=== PATIENT | female | born 1950 | race African-American/Black ===

== ENCOUNTER 2018-08-16 18:27 | Emergency (ER) | payer MEDICARE ==
[~2018-08-16] VITALS: Ht 175.3 cm; Wt 70.0 kg
[2018-08-16] MEDS ORDERED: SODIUM CHLORIDE 0.9% 1,000 ML IV ONE (18:58)
[2018-08-16 19:21] LABS: BASOPHILS % 1.1 % (0.0-2.0); EOSINOPHILS % 3.6 % (0.0-5.0); HEMOGLOBIN. 13.7 g/dL (12.0-16.0); MEAN PLATELET VOLUME 9.1 fl (7.4-10.4); MONOCYTES % 7.9 % (2.0-8.0); NEUTROPHILS % 61.4 % (40.0-76.0); PLATELET 260 x1000/uL (130-400); RED BLOOD CELL COUNT 5.06 mill/uL (4.2-5.4); RED CELL DISTRIBUTION WIDTH 13.6 % (11.6-14.6)
[2018-08-16 19:32] LABS: CHLORIDE 101 mEq/L (98-107)
[2018-08-16 19:39] LABS: BETA HYDROXYBUTYRATE 0.1 mMol/L (0.0-0.3)
[2018-08-16] MEDS ORDERED: INSULIN REGULAR (HUMULIN R) 300UNITS/3ML IV ONE (19:45)
[2018-08-16 22:07] VITALS: BP 169/98
== END 2018-08-16 22:08 | disposition home or self-care (01) ==
LOC: ER 18:27
DX: E10.65 Type 1 diabetes mellitus with hyperglycemia (principal); Z79.4 Long term (current) use of insulin; Z88.0 Allergy status to penicillin
CPT/HCPCS: 36415; 80053; 82010; 82962; 85025; 96361; 96374; 99284; J1815; J7030